=== PATIENT | male | born 1970 | race Caucasian/White ===

== ENCOUNTER 2022-06-09 05:29 | Inpatient (IN) | payer BC, MEDICAID, OTHER ==
[~2022-06-09] VITALS: Ht 177.8 cm; Wt 61.0 kg
[2022-06-09 06:23] LABS: BASOPHILS % (AUTO) 0.2 % (0-1); EOSINOPHILS % (AUTO) 0 % (0-6); HEMATOCRIT 49.4 % (42.0-52.0); HEMOGLOBIN 17.4 g/dl (14.0-17.9); LYMPHOCYTES # (AUTO) 1.2 X10'3 (1.1-4.8); LYMPHOCYTES % (AUTO) 6.9 % (21-51); MEAN CORPUSCULAR HEMOGLOBIN 31.3 PG (27.0-31.0); MEAN CORPUSCULAR HGB CONC 35.2 g/dL (33.0-36.5); MEAN PLATELET VOLUME 10.1 FL (7.4-10.4); MONOCYTES # (AUTO) 1.5 X10'3 (0-0.9); MONOCYTES % (AUTO) 8.1 % (2-12); NEUTROPHILS # (AUTO) 15.3 X10'3 (1.8-7.7); NEUTROPHILS % (AUTO) 84.8 % (42-75); PLATELET COUNT 155 X10'3 (140-440); RED BLOOD COUNT 5.55 X10'6 (4.70-6.10); RED CELL DISTRIBUTION WIDTH 12.4 % (11.5-14.5); WHITE BLOOD COUNT 18.1 X10'3 (4.5-11.0)
--- NOTE | 2022-06-09 06:25 | NUR ---
Patient family member later adds that he has increased PO fluid intake, states drank case of 32 16oz leiva and 2 gallons of milk over 1-2 days.
[2022-06-09 06:44] LABS: ALANINE AMINOTRANSFERASE 204 U/L (12-78); ALBUMIN 3.7 G/DL (3.4-5.0); ALBUMIN/GLOBULIN RATIO 0.9 (1.1-1.5); ALKALINE PHOSPHATASE 76 IU/L (46-116); ASPARTATE AMINO TRANSFERASE 104 U/L (10-37); BILIRUBIN,TOTAL 3.9 MG/DL (0.1-1.0); BLOOD UREA NITROGEN 119 MG/DL (7-18); BUN/CREATININE RATIO 27.9 (5.4-32.0); CALCIUM 8.3 MG/DL (8.5-10.1); CHLORIDE 68 MMOL/L (99-107); CREATININE 4.26 MG/DL (0.60-1.10); GLUCOSE 134 MG/DL (70-104); eGFR 15 ML/MIN
[2022-06-09 06:54] LABS: ANION GAP 4 (8-16)
[2022-06-09 06:57] LABS: POTASSIUM 2.4 MMOL/L (3.5-5.1); SODIUM 120 MMOL/L (135-145)
[2022-06-09 06:58] LABS: MAGNESIUM 4.5 MG/DL (1.5-2.4); TOTAL CARBON DIOXIDE 48.2 MMOL/L (24-32)
[2022-06-09] MEDS ORDERED: sodium chloride 3% IV.soln 100 ML IV PRN (07:05)
--- NOTE | 2022-06-09 07:23 | NUR ---
to ct scan.
--- NOTE | 2022-06-09 07:26 | NUR ---
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
[2022-06-09] MEDS ORDERED: potassium Cl 20 mEq SR tablet PO PRN ×2 (07:35)
[2022-06-09] MEDS ORDERED: potassium Cl 40MEQ/1/2NS 520ml 520 ML IV PRN (07:35)
[2022-06-09] MEDS ORDERED: acetaminophen 325mg tablet PO PRN ×2 (07:35)
[2022-06-09] MEDS: potassium CL 10mEq/100ml bag 100 ML IV SCH ×2 (07:38→08:31)
[2022-06-09 07:46] LABS: LIPASE 130 U/L (73-393)
[2022-06-09] MEDS: heparin, porcine 5000 units/ml vial SQ SCH ×2 (08:21→19:48)
[2022-06-09] MEDS: normal saline 1000ml 1,000 ML IV SCH ×2 (08:22→15:45)
[2022-06-09] MEDS: levoFLOXACIN-Levaquin 500mg/D5 100 ML IV SCH (09:07)
--- NOTE | 2022-06-09 09:15 | NUR ---
SPOKE TO DR PRICE ABOUT PT ELECTROLYTE LEVEL OER MD DO NOT GIVE ANOTHER AG OF NACL 3% DUE TO HIGHER CONCT ,KEEP INFUSING N.S AT 125 ML/HR.AFTER 2ND BAG OF K+ IS COMPLETE START WITH K+40 MEQ AND AFTER IT FINISHES REDRAW K+ LEVEL .WILL FOLLOW THE ORDERS.
--- NOTE | 2022-06-09 09:15 | NUR ---
DR PRICE WHILE EXAMINING THE PT GAVE VERBAL ORDERS TO DO BEDSIDE SWALLOW STUDY AND THEN ADVANCE DIET TOLRATED,NICOTINE 14 MG PATCH FOR SMOKING.
[2022-06-09 09:28] LABS: CLARITY,URINE CLEAR (Clear); COLOR,URINE YELLOW (Yellow); GLUCOSE, URINE NEGATIVE (Neg); KETONES,URINE NEGATIVE (Neg); LEUKOCYTE ESTERASE ,URINE NEGATIVE (Neg); NITRITES, URINE NEGATIVE (Neg); OCCULT BLOOD,URINE MODERATE (Neg); PROTEIN,URINE 30 mg/dl (Neg); UROBILINOGEN,URINE 0.2 E.U/dL (0.2-1.0)
[2022-06-09] MEDS ORDERED: normal saline 1000ml 1,000 ML IV ONE (09:30)
[2022-06-09 09:33] LABS: UA COLLECTION TYPE VOIDED
[2022-06-09 09:35] LABS: BACTERIA,URINE NONE SEEN /HPF (Neg); MUCUS STRANDS NONE SEEN /LPF (Neg); RBC,URINE NONE SEEN /HPF (0-2); SQUAMOUS EPITHELIAL CELL,UR FEW /LPF (FEW); WBC,URINE 0-4 /HPF (0-4)
--- NOTE | 2022-06-09 10:17 | NUR ---
SPOKE TO PHARMACY AND SPEAK TO [facility] PHARMACIST ,INFORMED THAT WE NEED K+40 MEQ BUT PER PROTOCOL IF SEREUM Creatine IS ABOVE 2.5 GIVE 1/2 K+. PER [facility] PT NEED 1 BAG OF K+ 40 MEQ RATHER THEN 2 BAG.
[2022-06-09] MEDS ORDERED: potassium Cl 40MEQ/1/2NS 520ml 520 ML IV ONE ×2 (10:20→18:55)
[2022-06-09] MEDS ORDERED: nicotine 14mg patch - 24hr TD ONE (10:20)
--- NOTE | 2022-06-09 11:14 | NUR ---
DR OZUNA HAS JUST EVALUATED THE PT.
--- NOTE | 2022-06-09 11:29 | NUR ---
INFORMED DR OZUNA THAT MOTHER IS CONCERNED OF PT USING STREET DRUGS ,VERBAL ORDER TO DO TOX URINE.
[2022-06-09 12:30] LABS: ALANINE AMINOTRANSFERASE 168 U/L (12-78); ALBUMIN/GLOBULIN RATIO 0.8 (1.1-1.5); ALKALINE PHOSPHATASE 68 IU/L (46-116); ASPARTATE AMINO TRANSFERASE 72 U/L (10-37); BILIRUBIN,TOTAL 2.8 MG/DL (0.1-1.0); BLOOD UREA NITROGEN 115 MG/DL (7-18); CALCIUM 7.3 MG/DL (8.5-10.1); CHLORIDE 76 MMOL/L (99-107); CREATININE 3.96 MG/DL (0.60-1.10); GLUCOSE 117 MG/DL (70-104); MAGNESIUM 3.8 MG/DL (1.5-2.4); PHOSPHORUS 5.4 MG/DL (2.3-4.5); SODIUM 125 MMOL/L (135-145); TOTAL PROTEIN 6.7 G/DL (6.4-8.2); eGFR 16 ML/MIN
[2022-06-09 12:46] LABS: ANION GAP 0 (8-16)
[2022-06-09 12:48] LABS: POTASSIUM 2.7 MMOL/L (3.5-5.1)
[2022-06-09 12:49] LABS: TOTAL CARBON DIOXIDE 49.2 MMOL/L (24-32)
[2022-06-09 14:09] LABS: OSMOLALITY UA 388 MOSM/K (50-1400)
[2022-06-09 14:10] LABS: CHLORIDE,URINE RANDOM < 50 MEQ/L; SODIUM,URINE RANDOM 28 MEQ/L; TOTAL PROTEIN,URINE RANDOM 83.7 MG/DL
[2022-06-09 14:15] LABS: URINE AMPHETAMINE SCREEN NEGATIVE (Neg); URINE BARBITUATE SCREEN NEGATIVE (Neg); URINE BENZODIAZEPINES SCREEN NEGATIVE (Neg); URINE CANNABINOID SCREEN NEGATIVE (Neg); URINE COCAINE SCREEN NEGATIVE (Neg); URINE METHADONE SCREEN NEGATIVE (Neg); URINE OPIATE SCREEN NEGATIVE (Neg); URINE PHENCYCLIDINE SCREEN NEGATIVE (Neg)
[2022-06-09] MEDS ORDERED: NO HOME MEDS (16:16)
--- NOTE | 2022-06-09 17:35 | NUR ---
Patient in room PCU 3015. I have received report from bridgette SALDAÑA and had the opportunity to ask questions and assume patient care. Blood sample taken and rushed to Lab for Stat bmp. Ns reduced to 50ml/hr. mom at bedside. Addendum: 06/09/22 at 1738 by Sarahy Raygoza RN Amended: Links added.
[2022-06-09 18:10] LABS: ALBUMIN 2.7 G/DL (3.4-5.0); ANION GAP 2 (8-16); BLOOD UREA NITROGEN 112 MG/DL (7-18); CALCIUM 7.2 MG/DL (8.5-10.1); CHLORIDE 83 MMOL/L (99-107); CREATININE 3.73 MG/DL (0.60-1.10); GLUCOSE 104 MG/DL (70-104); SODIUM 128 MMOL/L (135-145); eGFR 17 ML/MIN
--- NOTE | 2022-06-09 18:14 | NUR ---
await results of bmp. Problems reprioritized. Patient report given, questions answered & plan of care reviewed with Mallory SALDAÑA. PT sleeping and mumbling. Mom at bedside. Addendum: 06/09/22 at 1815 by Sarahy Raygoza RN Amended: Links added.
[2022-06-09 18:38] LABS: POTASSIUM 2.2 MMOL/L (3.5-5.1); TOTAL CARBON DIOXIDE 43.5 MMOL/L (24-32)
[2022-06-09 19:39] LABS: ALANINE AMINOTRANSFERASE 142 U/L (12-78); ALBUMIN 2.8 G/DL (3.4-5.0); ALBUMIN/GLOBULIN RATIO 0.8 (1.1-1.5); ALKALINE PHOSPHATASE 58 IU/L (46-116); ANION GAP 6 (8-16); ASPARTATE AMINO TRANSFERASE 57 U/L (10-37); BILIRUBIN,TOTAL 2.1 MG/DL (0.1-1.0); BLOOD UREA NITROGEN 112 MG/DL (7-18); BUN/CREATININE RATIO 30.8 (5.4-32.0); CALCIUM 7.7 MG/DL (8.5-10.1); CHLORIDE 84 MMOL/L (99-107); CREATININE 3.64 MG/DL (0.60-1.10); GLUCOSE 115 MG/DL (70-104); MAGNESIUM 3.6 MG/DL (1.5-2.4); PHOSPHORUS 3.7 MG/DL (2.3-4.5); SODIUM 130 MMOL/L (135-145); TOTAL PROTEIN 6.2 G/DL (6.4-8.2); eGFR 18 ML/MIN
[2022-06-09 19:47] LABS: TOTAL CARBON DIOXIDE 40.4 MMOL/L (24-32)
[2022-06-09 19:49] LABS: POTASSIUM 2.3 MMOL/L (3.5-5.1)
--- NOTE | 2022-06-09 19:57 | NUR ---
PAGER ID: [phone] MESSAGE: this is [facility] 5441 patient Rubén Cantu - uzair K 2.3 Co2 40.4 replacing K per protocol any new orders? SEND ANOTHER PAGE Thank you for visiting [facility]
[2022-06-09 22:00] VITALS: BP 124/74
--- NOTE | 2022-06-10 01:23 | NUR ---
reviewed and edited SRN assessment.
[2022-06-10 02:00] VITALS: BP 122/80
[2022-06-10 06:00] VITALS: BP 125/72
[2022-06-10 06:31] LABS: ALANINE AMINOTRANSFERASE 124 U/L (12-78); ALBUMIN 2.7 G/DL (3.4-5.0); ALBUMIN/GLOBULIN RATIO 0.8 (1.1-1.5); ALKALINE PHOSPHATASE 62 IU/L (46-116); ANION GAP 8 (8-16); ASPARTATE AMINO TRANSFERASE 48 U/L (10-37); BILIRUBIN,TOTAL 1.7 MG/DL (0.1-1.0); BLOOD UREA NITROGEN 102 MG/DL (7-18); BUN/CREATININE RATIO 29.9 (5.4-32.0); CALCIUM 8.3 MG/DL (8.5-10.1); CHLORIDE 88 MMOL/L (99-107); CREATININE 3.41 MG/DL (0.60-1.10); GLUCOSE 102 MG/DL (70-104); MAGNESIUM 3.4 MG/DL (1.5-2.4); PHOSPHORUS 3.2 MG/DL (2.3-4.5); SODIUM 132 MMOL/L (135-145); TOTAL CARBON DIOXIDE 36.3 MMOL/L (24-32); TOTAL PROTEIN 6.3 G/DL (6.4-8.2); eGFR 19 ML/MIN
[2022-06-10 06:43] LABS: POTASSIUM 2.2 MMOL/L (3.5-5.1)
--- NOTE | 2022-06-10 06:46 | NUR ---
PAGE SENT PAGER ID: [phone] MESSAGE: [id number], LILIA SNIDER, CRITICAL LAB K 2.2 THANK YOU, MYLES Turner 545
[2022-06-10 06:54] LABS: EOSINOPHILS % (AUTO) 0 % (0-6); HEMOGLOBIN 13.9 g/dl (14.0-17.9); LYMPHOCYTES # (AUTO) 1.1 X10'3 (1.1-4.8); MEAN PLATELET VOLUME 10.7 FL (7.4-10.4)
--- NOTE | 2022-06-10 06:54 | NUR ---
Problems reprioritized. Patient report given, questions answered & plan of care reviewed with PIPER Cruz.
[2022-06-10 06:57] LABS: BASOPHILS % (AUTO) 0 % (0-1); LYMPHOCYTES % (AUTO) 9.3 % (21-51); MEAN CORPUSCULAR HEMOGLOBIN 31.4 PG (27.0-31.0); MEAN CORPUSCULAR HGB CONC 34.8 g/dL (33.0-36.5); MEAN CORPUSCULAR VOLUME 90.4 FL (78-98); MONOCYTES # (AUTO) 1.3 X10'3 (0-0.9); MONOCYTES % (AUTO) 11.1 % (2-12); NEUTROPHILS # (AUTO) 9.3 X10'3 (1.8-7.7); NEUTROPHILS % (AUTO) 79.6 % (42-75); PLATELET COUNT 123 X10'3 (140-440); RED BLOOD COUNT 4.43 X10'6 (4.70-6.10); RED CELL DISTRIBUTION WIDTH 12.7 % (11.5-14.5); WHITE BLOOD COUNT 11.6 X10'3 (4.5-11.0)
[2022-06-10] MEDS ORDERED: potassium Cl 40MEQ/1/2NS 520ml 520 ML IV ONE ×3 (07:30→22:35)
[2022-06-10 07:38] LABS: LARGE PLATELETS FEW; PLATELET ESTIMATE DECREASED
--- NOTE | 2022-06-10 07:56 | NUR ---
Patient in room PCU 3015. I have received report from PIPER WIGGINS, and had the opportunity to ask questions and assume patient care.
--- NOTE | 2022-06-10 07:57 | NUR ---
CONTACTED PHARMACY CONCERNING POTASSUIM 80 mEq IV ORDER. PHARMACY SAID TO SEND SOMEONE DOWN TO COLLECT.
[2022-06-10] MEDS: levoFLOXACIN-Levaquin 500mg/D5 100 ML IV SCH (08:32)
[2022-06-10] MEDS: heparin, porcine 5000 units/ml vial SQ SCH ×2 (08:48→21:11)
[2022-06-10] MEDS ORDERED: metoclopramide 10mg tablet PO ONE (09:40)
[2022-06-10] MEDS: Potassium Cl inj 40 MEQ in normal saline 1000ml 1,000 ML IV SCH (10:34)
[2022-06-10 11:00] VITALS: BP 120/75
[2022-06-10 12:07] LABS: ALANINE AMINOTRANSFERASE 116 U/L (12-78); ALBUMIN 2.6 G/DL (3.4-5.0); ALBUMIN/GLOBULIN RATIO 0.7 (1.1-1.5); ALKALINE PHOSPHATASE 57 IU/L (46-116); ANION GAP 4 (8-16); ASPARTATE AMINO TRANSFERASE 39 U/L (10-37); BILIRUBIN,TOTAL 1.5 MG/DL (0.1-1.0); BLOOD UREA NITROGEN 99 MG/DL (7-18); BUN/CREATININE RATIO 30.5 (5.4-32.0); CALCIUM 8.2 MG/DL (8.5-10.1); CHLORIDE 90 MMOL/L (99-107); CREATININE 3.25 MG/DL (0.60-1.10); GLUCOSE 96 MG/DL (70-104); MAGNESIUM 3.3 MG/DL (1.5-2.4); PHOSPHORUS 3.3 MG/DL (2.3-4.5); SODIUM 132 MMOL/L (135-145); TOTAL PROTEIN 6.1 G/DL (6.4-8.2); eGFR 20 ML/MIN
[2022-06-10 12:18] LABS: POTASSIUM 2.3 MMOL/L (3.5-5.1)
--- NOTE | 2022-06-10 12:20 | NUR ---
PAGE SENT PAGER ID: [phone] MESSAGE: [id number], AMEENA SNIDER, CRITICAL LAB K - 2.3. THANK YOU, MYLES Turner [id number]
[2022-06-10] MEDS ORDERED: potassium CL 10mEq/100ml bag 100 ML IV ONE ×4 (12:30→15:30)
[2022-06-10 15:39] VITALS: BP 109/70
--- NOTE | 2022-06-10 15:39 | NUR ---
PAGE SENT PAGER ID: [phone] MESSAGE: [id number], LILIATONY SNIDER, POOR DENTATION, MAY WE GIVEN HIM A SOFT DIET? THANK YOU, MYLES [phone]
--- NOTE | 2022-06-10 16:29 | NUR ---
PAGE SENT PAGER ID: [phone] MESSAGE: [id number], LILIA SNIDER, PT REPORTS 20 CIGARETTES DAILY, NICOTINE PATCH PLEASE? THANK YOU, MYLES [phone]
[2022-06-10 16:31] LABS: EOSINOPHILS % (AUTO) 0.1 % (0-6); NEUTROPHILS # (AUTO) 8.3 X10'3 (1.8-7.7); RED BLOOD COUNT 4.28 X10'6 (4.70-6.10)
[2022-06-10 16:32] LABS: BASOPHILS % (AUTO) 0.1 % (0-1); HEMATOCRIT 38.9 % (42.0-52.0); HEMOGLOBIN 13.5 g/dl (14.0-17.9); LYMPHOCYTES % (AUTO) 9.5 % (21-51); MEAN CORPUSCULAR HEMOGLOBIN 31.5 PG (27.0-31.0); MEAN CORPUSCULAR HGB CONC 34.6 g/dL (33.0-36.5); MEAN CORPUSCULAR VOLUME 90.9 FL (78-98); MEAN PLATELET VOLUME 10.8 FL (7.4-10.4); MONOCYTES # (AUTO) 1.2 X10'3 (0-0.9); MONOCYTES % (AUTO) 11.5 % (2-12); NEUTROPHILS % (AUTO) 78.8 % (42-75); PLATELET COUNT 132 X10'3 (140-440); RED CELL DISTRIBUTION WIDTH 12.6 % (11.5-14.5); WHITE BLOOD COUNT 10.5 X10'3 (4.5-11.0)
[2022-06-10] MEDS ORDERED: nicotine 14mg patch - 24hr TD ONE (16:40)
[2022-06-10 16:41] LABS: ALANINE AMINOTRANSFERASE 111 U/L (12-78); ALBUMIN 2.5 G/DL (3.4-5.0); ALBUMIN/GLOBULIN RATIO 0.8 (1.1-1.5); ALKALINE PHOSPHATASE 57 IU/L (46-116); ANION GAP 6 (8-16); ASPARTATE AMINO TRANSFERASE 36 U/L (10-37); BILIRUBIN,TOTAL 1.3 MG/DL (0.1-1.0); BLOOD UREA NITROGEN 91 MG/DL (7-18); BUN/CREATININE RATIO 28.5 (5.4-32.0); CALCIUM 8.3 MG/DL (8.5-10.1); CHLORIDE 93 MMOL/L (99-107); CREATININE 3.19 MG/DL (0.60-1.10); GLUCOSE 103 MG/DL (70-104); SODIUM 133 MMOL/L (135-145); TOTAL CARBON DIOXIDE 33.7 MMOL/L (24-32); TOTAL PROTEIN 5.8 G/DL (6.4-8.2); eGFR 21 ML/MIN
[2022-06-10 16:43] LABS: POTASSIUM 2.9 MMOL/L (3.5-5.1)
--- NOTE | 2022-06-10 16:46 | NUR ---
PAGE SENT PAGER ID: [phone] MESSAGE: [id number], LILIA SNIDER, NOTIFYING YOU OF CRITICAL LAB, K 2.9. THANK YOU, MYLES [id number]
--- NOTE | 2022-06-10 17:48 | NUR ---
PT REPORTED DARK, LOOSE STOOLS, BUT HE FLUSHED. HAT PLACED IN TOILET, PT ASKED TO PLEASE USE TO SHOW STOOL TO NURSE.
[2022-06-10 18:00] VITALS: BP 118/68
--- NOTE | 2022-06-10 18:23 | NUR ---
Problems reprioritized. Patient report given, questions answered & plan of care reviewed with PIPER CLEMENTS.
--- NOTE | 2022-06-10 18:44 | NUR ---
Problems reprioritized. Patient report given, questions answered & plan of care reviewed with PIPER LEOS.
[2022-06-10 19:56] LABS: ALANINE AMINOTRANSFERASE 110 U/L (12-78); ALBUMIN 2.6 G/DL (3.4-5.0); ALBUMIN/GLOBULIN RATIO 0.8 (1.1-1.5); ALKALINE PHOSPHATASE 57 IU/L (46-116); ANION GAP 6 (8-16); ASPARTATE AMINO TRANSFERASE 34 U/L (10-37); BILIRUBIN,TOTAL 1.3 MG/DL (0.1-1.0); BLOOD UREA NITROGEN 89 MG/DL (7-18); BUN/CREATININE RATIO 28.3 (5.4-32.0); CALCIUM 8.6 MG/DL (8.5-10.1); CHLORIDE 95 MMOL/L (99-107); CREATININE 3.14 MG/DL (0.60-1.10); GLUCOSE 106 MG/DL (70-104); PHOSPHORUS 2.7 MG/DL (2.3-4.5); SODIUM 136 MMOL/L (135-145); TOTAL CARBON DIOXIDE 35.1 MMOL/L (24-32); eGFR 21 ML/MIN
[2022-06-10] MEDS: ondansetron/PF 4mg/2ml inj IV PRN (21:19)
[2022-06-10 22:00] VITALS: BP 114/71
--- NOTE | 2022-06-10 22:35 | NUR ---
PT POTASSIUM IS AT 3.0, CALLED THE PHARMACIST TO ASK IF WE CAN ADMINISTER THE ONE WE HAVE IN THE [place]ID[place] 40MEQ/1/2NS 520ML IT WAS DISCONTINUED; PHARMACIST SAID I CAN GO AHEAD AND OVERRIDE TO ADMINISTER IT
[2022-06-10] MEDS ORDERED: Melatonin 3mg tablet PO PRN (22:45)
[2022-06-11 02:00] VITALS: BP 121/73
[2022-06-11 06:00] VITALS: BP 138/78
[2022-06-11 06:28] LABS: ALANINE AMINOTRANSFERASE 102 U/L (12-78); ALBUMIN 2.5 G/DL (3.4-5.0); ALBUMIN/GLOBULIN RATIO 0.6 (1.1-1.5); ALKALINE PHOSPHATASE 55 IU/L (46-116); ANION GAP 7 (8-16); ASPARTATE AMINO TRANSFERASE 33 U/L (10-37); BILIRUBIN,TOTAL 1.3 MG/DL (0.1-1.0); BLOOD UREA NITROGEN 81 MG/DL (7-18); BUN/CREATININE RATIO 28.1 (5.4-32.0); CALCIUM 8.6 MG/DL (8.5-10.1); CHLORIDE 99 MMOL/L (99-107); CREATININE 2.88 MG/DL (0.60-1.10); GLUCOSE 99 MG/DL (70-104); MAGNESIUM 2.7 MG/DL (1.5-2.4); PHOSPHORUS 2.2 MG/DL (2.3-4.5); POTASSIUM 3.3 MMOL/L (3.5-5.1); SODIUM 138 MMOL/L (135-145); TOTAL CARBON DIOXIDE 31.9 MMOL/L (24-32); TOTAL PROTEIN 6.4 G/DL (6.4-8.2); eGFR 23 ML/MIN
[2022-06-11] MEDS: Potassium Cl inj 40 MEQ in normal saline 1000ml 1,000 ML IV SCH (06:38)
[2022-06-11 06:58] LABS: MEAN CORPUSCULAR VOLUME 91.8 FL (78-98); MONOCYTES # (AUTO) 1.3 X10'3 (0-0.9)
[2022-06-11 07:01] LABS: BASOPHILS % (AUTO) 0 % (0-1); EOSINOPHILS % (AUTO) 0.2 % (0-6); HEMATOCRIT 41.2 % (42.0-52.0); LYMPHOCYTES # (AUTO) 1.2 X10'3 (1.1-4.8); LYMPHOCYTES % (AUTO) 12.2 % (21-51); MEAN CORPUSCULAR HEMOGLOBIN 31.1 PG (27.0-31.0); MEAN CORPUSCULAR HGB CONC 33.9 g/dL (33.0-36.5); MEAN PLATELET VOLUME 10.9 FL (7.4-10.4); MONOCYTES % (AUTO) 13.3 % (2-12); NEUTROPHILS # (AUTO) 7.3 X10'3 (1.8-7.7); NEUTROPHILS % (AUTO) 74.3 % (42-75); PLATELET COUNT 159 X10'3 (140-440); RED BLOOD COUNT 4.49 X10'6 (4.70-6.10); RED CELL DISTRIBUTION WIDTH 12.4 % (11.5-14.5); WHITE BLOOD COUNT 9.8 X10'3 (4.5-11.0)
--- NOTE | 2022-06-11 07:02 | NUR ---
Patient in room PCU 3015. I have received report from PIPER CLEMENTS, and had the opportunity to ask questions and assume patient care.
[2022-06-11 08:03] LABS: GIANT PLATELET FEW; LARGE PLATELETS FEW; PLATELET ESTIMATE NORMAL
[2022-06-11 08:04] LABS: ANISOCYTOSIS 1+
[2022-06-11] MEDS: levoFLOXACIN-Levaquin 250mg/D5 50 ML IV SCH (08:53)
[2022-06-11] MEDS: heparin, porcine 5000 units/ml vial SQ SCH ×2 (09:02→20:10)
[2022-06-11] MEDS: nicotine 14mg patch - 24hr TD SCH (09:05)
[2022-06-11 11:29] LABS: ALANINE AMINOTRANSFERASE 94 U/L (12-78); ALBUMIN 2.3 G/DL (3.4-5.0); ALBUMIN/GLOBULIN RATIO 0.7 (1.1-1.5); ALKALINE PHOSPHATASE 49 IU/L (46-116); ANION GAP 5 (8-16); ASPARTATE AMINO TRANSFERASE 30 U/L (10-37); BILIRUBIN,TOTAL 0.9 MG/DL (0.1-1.0); BLOOD UREA NITROGEN 79 MG/DL (7-18); BUN/CREATININE RATIO 29.3 (5.4-32.0); CALCIUM 8.6 MG/DL (8.5-10.1); CHLORIDE 102 MMOL/L (99-107); GLUCOSE 111 MG/DL (70-104); MAGNESIUM 2.4 MG/DL (1.5-2.4); PHOSPHORUS 1.7 MG/DL (2.3-4.5); POTASSIUM 3.6 MMOL/L (3.5-5.1); SODIUM 138 MMOL/L (135-145); TOTAL CARBON DIOXIDE 31.3 MMOL/L (24-32); TOTAL PROTEIN 5.6 G/DL (6.4-8.2); eGFR 25 ML/MIN
[2022-06-11 11:48] VITALS: BP 117/75
--- NOTE | 2022-06-11 14:03 | NUR ---
PAGE SENT TO GI LAB 7411H, LILIA SNIDER, DR. OZUNA ORDERED AN EGD FOR THE UPPER GI AND SMALL INTESTINE. UNABLE TO DISCERN WHICH EGD TO ORDER. PLEASE HELP ME. THANK YOU, MYLES Turner 1943
--- NOTE | 2022-06-11 14:46 | NUR ---
PAGE SENT PAGER ID: [phone] MESSAGE: [id number], DR. LAITH JOSE ORDERED DAILY LABS. DO YOU STILL WANT Q 8 LABS? HE'S GOT A LOT OF LABS. THANK YOU, MYLES X [phone] DR. PRICE ORDERED D/C ALL LABS BUT DAILY.
[2022-06-11 15:05] VITALS: BP 113/72
[2022-06-11] MEDS: ondansetron/PF 4mg/2ml inj IV PRN ×2 (15:42→20:10)
--- NOTE | 2022-06-11 16:44 | NUR ---
RECEIVED AN ORDER FROM DR. OZUNA FOR A GI, SMALL INTESTINE STUDY. ATTEMPTED TO ORDER EDG, BUT UNCERTAIN WHICH ONE TO CHOOSE. CASSIE ASIF, SUGGESTED CONTACTING GI LAB FOR ASSISTANCE. MULTIPLE PHONE CALLS ATTEMPTED, ONLY GOT VM. PLEASE SEE PREVIOUS NOTE ON PAGE SENT TO GI LAB ASKING FOR ASSISTANCE. NO RESPONSE FROM GI LAB.
--- NOTE | 2022-06-11 18:39 | NUR ---
Problems reprioritized. Patient report given, questions answered & plan of care reviewed with PIPER LEOS.
--- NOTE | 2022-06-11 19:25 | NUR ---
Patient in the bed with the head of te bed elevated to semi-fowlers position. Patient is alert and oriented times 4. call light within reach and all personal belongings within reach
[2022-06-11 22:00] VITALS: BP 112/63
--- NOTE | 2022-06-11 22:10 | NUR ---
Notified Dr. Flores that the patient stat potassium is 3.2, no new orders were given
[2022-06-12] MEDS: Potassium Cl inj 40 MEQ in normal saline 1000ml 1,000 ML IV SCH (00:19)
[2022-06-12] MEDS: ondansetron/PF 4mg/2ml inj IV PRN (01:47)
[2022-06-12 05:29] VITALS: BP 117/71
--- NOTE | 2022-06-12 05:54 | NUR ---
Patient in bed with the head of the bed elevated to semi-mcdonald position. Patient is alert and oriented times four. Patient denies pain. Call light within reach and all personal belongings within reach.
[2022-06-12 06:00] VITALS: BP 115/74
[2022-06-12 07:29] LABS: EOSINOPHILS # (AUTO) 0.2 X10'3 (0-0.9); HEMOGLOBIN 12.8 g/dl (14.0-17.9); LYMPHOCYTES # (AUTO) 1.5 X10'3 (1.1-4.8); MONOCYTES # (AUTO) 1.3 X10'3 (0-0.9); WHITE BLOOD COUNT 10.3 X10'3 (4.5-11.0)
[2022-06-12 07:32] LABS: BASOPHILS % (AUTO) 0.2 % (0-1); EOSINOPHILS % (AUTO) 2.2 % (0-6); HEMATOCRIT 36.7 % (42.0-52.0); LYMPHOCYTES % (AUTO) 14.4 % (21-51); MEAN CORPUSCULAR HEMOGLOBIN 31.7 PG (27.0-31.0); MEAN CORPUSCULAR HGB CONC 34.8 g/dL (33.0-36.5); MEAN PLATELET VOLUME 10.1 FL (7.4-10.4); MONOCYTES % (AUTO) 12.2 % (2-12); NEUTROPHILS # (AUTO) 7.3 X10'3 (1.8-7.7); PLATELET COUNT 196 X10'3 (140-440); RED BLOOD COUNT 4.03 X10'6 (4.70-6.10); RED CELL DISTRIBUTION WIDTH 12.4 % (11.5-14.5)
[2022-06-12] MEDS: levoFLOXACIN-Levaquin 250mg/D5 50 ML IV SCH (07:35)
[2022-06-12] MEDS: heparin, porcine 5000 units/ml vial SQ SCH ×2 (07:35→20:56)
[2022-06-12] MEDS: nicotine 14mg patch - 24hr TD SCH (07:36)
[2022-06-12 08:01] LABS: ALANINE AMINOTRANSFERASE 88 U/L (12-78); ALBUMIN 2.3 G/DL (3.4-5.0); ALBUMIN/GLOBULIN RATIO 0.8 (1.1-1.5); ALKALINE PHOSPHATASE 46 IU/L (46-116); ANION GAP 7 (8-16); ASPARTATE AMINO TRANSFERASE 32 U/L (10-37); BILIRUBIN,TOTAL 0.9 MG/DL (0.1-1.0); BLOOD UREA NITROGEN 61 MG/DL (7-18); CALCIUM 8.2 MG/DL (8.5-10.1); CHLORIDE 106 MMOL/L (99-107); CREATININE 2.35 MG/DL (0.60-1.10); GLUCOSE 101 MG/DL (70-104); POTASSIUM 3.2 MMOL/L (3.5-5.1); SODIUM 144 MMOL/L (135-145); TOTAL CARBON DIOXIDE 30.8 MMOL/L (24-32); TOTAL PROTEIN 5.3 G/DL (6.4-8.2); eGFR 29 ML/MIN
[2022-06-12 08:19] LABS: GIANT PLATELET FEW; LARGE PLATELETS FEW; PLATELET ESTIMATE NORMAL
[2022-06-12] MEDS: pantoprazole 40mg Tablet.DR PO SCH ×2 (10:15→20:00)
[2022-06-12] MEDS ORDERED: HALLS - SOOTHE MENTHOL 1.8 MG cough drop LOZENGE MM PRN (10:15)
[2022-06-12] MEDS ORDERED: potassium CL 10mEq/100ml bag 100 ML IV SCH (10:30)
[2022-06-12] MEDS: Potassium Cl 40 MEQ in sodium chloride 0.45% 500 ML IV SCH ×2 (11:26→16:00)
[2022-06-12] MEDS: potassium Cl 20 mEq SR tablet PO SCH ×3 (13:00→18:49)
[2022-06-12] MEDS: chlorproMAZINE 25mg tablet PO PRN ×2 (14:44→23:35)
[2022-06-12 15:00] VITALS: BP 128/69
[2022-06-12 15:00] LABS: OCCULT BLOOD STOOL POSITIVE (Neg)
[2022-06-12 16:53] LABS: HBSAG SCREEN Negative (Negative); HEP B CORE AB, TOT Negative (Negative)
[2022-06-12 18:00] VITALS: BP 116/76
[2022-06-13 02:00] VITALS: BP 114/75
[2022-06-13 06:00] VITALS: BP 121/80
[2022-06-13] MEDS: levoFLOXACIN-Levaquin 250mg/D5 50 ML IV SCH (07:40)
[2022-06-13] MEDS: heparin, porcine 5000 units/ml vial SQ SCH (07:41)
[2022-06-13] MEDS: pantoprazole 40mg Tablet.DR PO SCH ×2 (07:41→10:15)
[2022-06-13] MEDS: potassium Cl 20 mEq SR tablet PO SCH ×3 (07:41→17:00)
[2022-06-13] MEDS: nicotine 14mg patch - 24hr TD SCH (07:42)
[2022-06-13 09:47] LABS: ALANINE AMINOTRANSFERASE 106 U/L (12-78); ALBUMIN 2.3 G/DL (3.4-5.0); ALBUMIN/GLOBULIN RATIO 0.7 (1.1-1.5); ALKALINE PHOSPHATASE 47 IU/L (46-116); ANION GAP 6 (8-16); ASPARTATE AMINO TRANSFERASE 39 U/L (10-37); BILIRUBIN,TOTAL 0.7 MG/DL (0.1-1.0); BLOOD UREA NITROGEN 44 MG/DL (7-18); BUN/CREATININE RATIO 22.9 (5.4-32.0); CALCIUM 8.5 MG/DL (8.5-10.1); CHLORIDE 110 MMOL/L (99-107); CREATININE 1.92 MG/DL (0.60-1.10); GLUCOSE 81 MG/DL (70-104); POTASSIUM 3.9 MMOL/L (3.5-5.1); SODIUM 145 MMOL/L (135-145); TOTAL CARBON DIOXIDE 28.6 MMOL/L (24-32); TOTAL PROTEIN 5.5 G/DL (6.4-8.2); eGFR 37 ML/MIN
[2022-06-13 13:17] LABS: MAGNESIUM 1.6 MG/DL (1.5-2.4); PHOSPHORUS 2.5 MG/DL (2.3-4.5)
[2022-06-13] MEDS: chlorproMAZINE 25mg tablet PO PRN (14:38)
[2022-06-13] MEDS ORDERED: magnesium 2GM in 50ml NS 50 ML IV ONE (15:30)
[2022-06-13] MEDS ORDERED: MAGN64TA8 PO (15:44)
[2022-06-13] MEDS ORDERED: CHLO25TA68 PO (15:44)
[2022-06-13] MEDS ORDERED: NICO-631 TD (15:44)
--- NOTE | 2022-06-13 17:00 | NUR ---
Discharge instructions discussed with pt and mother. All questions answered. Pt states he understands all instructions. After magnesium iv finishes, pt will leave unit via wheelchair to private car.
== END 2022-06-13 18:00 | disposition home or self-care (01) | DRG 683 ==
LOC: ER 05:29 → ED HOLD 07:38 → EDBEDREQ 16:41 → PCU 3S 17:29
PROVIDERS: ADMIT Internal Medicine; ATTEND Internal Medicine
DX: N17.9 Acute kidney failure, unspecified (principal); E87.1 Hypo-osmolality and hyponatremia; E87.3 Alkalosis; N18.5 Chronic kidney disease, stage 5; R19.7 Diarrhea, unspecified; K21.9 Gastro-esophageal reflux disease without esophagitis; R06.6 Hiccough; Z20.822 Contact with and (suspected) exposure to COVID-19; E80.6 Other disorders of bilirubin metabolism; E83.41 Hypermagnesemia; E87.6 Hypokalemia; F17.210 Nicotine dependence, cigarettes, uncomplicated; Z82.0 Family history of epilepsy and other diseases of the nervous system; Z88.0 Allergy status to penicillin
CPT/HCPCS: 36415; 70450; 71045; 74176; 76700; 80048; 80053; 80305; 81001; 82272; 82436; 82570; 83605; 83690; 83735; 83935; 84100; 84132; 84133; 84145; 84156; 84300; 84484; 85008; 85025; 86704; 86705; 86706; 87040; 87045; 87046; 87081; 87340; 87502; 87503; 87635; 89055; 93005; 93306; 97116; 97161; 99285; A4615; C9803; G0378; J1644; J1956; J2405; J3475; J3480; J3490; J7030; J7040; J7131; Q0161